=== PATIENT | male | born 1995 | race Caucasian/White ===

== ENCOUNTER 2020-08-20 10:39 | Emergency (ER) | payer BC, OTHER ==
[2020-08-20 10:45] VITALS: BMI 23.1
[2020-08-20] MEDS ORDERED: SODIUM CHLORIDE 1,000 ML IV STA (11:24)
[2020-08-20] MEDS ORDERED: ONDANSETRON 4 MG/2 ML VIAL IVPUSH ONE (11:24)
[2020-08-20] MEDS ORDERED: ONDANSETRON 4 MG/2 ML VIAL ONE (11:33)
[2020-08-20 11:54] LABS: BASO % 0.3 % (0-2.0); EOS % 0.1 % (0-4.5); HEMATOCRIT 46.1 % (35.4-49); HEMOGLOBIN 15.4 GM/dL (11.7-16.9); MCH 27.6 pg (25.7-33.7); MCHC 33.3 g/dl (32.0-35.9); MEAN PLT VOLUME 8.8 fl (7.5-11.1); NEUT % 78.6 % (42.8-82.8); PLATELET COUNT 155 K/MM3 (134-434); RBC 5.56 M/mm3 (4.00-5.60); RDW 13.4 % (11.9-15.9)
[2020-08-20 12:17] LABS: ALBUMIN 4.1 g/dl (3.4-5.0); BLOOD UREA NITROGEN 10.7 mg/dL (7-18)
[2020-08-20 12:20] LABS: CREATININE 1.3 mg/dL (0.55-1.3)
[2020-08-20 12:21] LABS: TOT PROT 8.2 g/dl (6.4-8.2)
[2020-08-20 12:28] LABS: BILIRUBIN,TOTAL 1.2 mg/dL (0.2-1)
[2020-08-20 12:43] VITALS: BP 124/67; PULSE 102; TEMP 98.4
== END 2020-08-20 13:07 | disposition home or self-care (01) ==
LOC: JER 10:39
PROC: 3E033GC Introduction of Other Therapeutic Substance into Peripheral Vein, Percutaneous Approach (ICD-10-PCS; principal; 2020-08-20)
PROC: 3E0337Z Introduction of Electrolytic and Water Balance Substance into Peripheral Vein, Percutaneous Approach (ICD-10-PCS; 2020-08-20)
DX: R11.2 Nausea with vomiting, unspecified (principal); R19.7 Diarrhea, unspecified
CPT/HCPCS: 36415; 71046-TC-FY; 80053; 83690; 85025; 99284-25; C9803; U0003; U0005

== ENCOUNTER 2023-06-19 04:44 | Emergency (ER) | payer BC, OTHER ==
[2023-06-19 04:56] VITALS: BP 141/70; PULSE 142; RESP 18; TEMP 98.2; BMI 23.0
== END 2023-06-19 05:56 | disposition left against medical advice (07) ==
LOC: JER 04:44
DX: R00.2 Palpitations (principal); F14.10 Cocaine abuse, uncomplicated
CPT/HCPCS: 93005; 93010; 99283-25